=== PATIENT | male | born 1955 | race Caucasian/White ===

== ENCOUNTER 2021-12-28 07:46 | Day surgery (SDC) | payer MEDICARE, BC ==
[~2021-12-28 07:46] MED LIST: Sodium Chloride 0.9% 10 ML Syringe FLUSH PRN
[2021-12-28] MEDS ORDERED: Propofol 200 MG/20 ML SDV IV ONE (07:47)
[2021-12-28] MEDS ORDERED: Lidocaine 1% PF 2 ML SDV INJECT ONE (07:47)
[2021-12-28] MEDS: Lactated Ringers 1,000 ML IV SCH (08:11)
== END 2021-12-28 10:31 | disposition home or self-care (01) ==
LOC: FB.SDS 07:46 → EDBD 07:46 → FB.SDS 10:31
PROVIDERS: ATTEND Surgery
DX: K57.30 Diverticulosis of large intestine without perforation or abscess without bleeding (principal); Z91.030 Bee allergy status; Z79.899 Other long term (current) drug therapy; Z98.890 Other specified postprocedural states
CPT/HCPCS: 00812; 45378; J2704; J7120